=== PATIENT | male | born 2000 | race Caucasian/White ===

== ENCOUNTER 2024-03-20 21:38 | Emergency (ER) | payer OTHER ==
[~2024-03-20] VITALS: Ht 180.3 cm; Wt 108.9 kg
[2024-03-20] MEDS ORDERED: IOHEXOL 300 MG/ML 100 ML VIAL IV ONE (21:45)
[2024-03-20] MEDS ORDERED: SODIUM CHLORIDE 0.9% 1,000 ML IV ONE (21:50)
[2024-03-20] MEDS ORDERED: Thiamine 200 MG/2 ML VIAL IV ONE (21:50)
[2024-03-20] MEDS ORDERED: IOHEXOL 300 MG/ML 100 ML VIAL ONE (22:02)
[2024-03-20 22:17] LABS: HEMATOCRIT 43.6 % (42.0-52.0); MEAN CELL VOLUME 89.9 fl (80.0-94.0); MEAN CORPUSCULAR HGB 31.3 pg (27.0-31.0); MEAN CORPUSCULAR HGB CONC 34.9 g/dl (33.0-37.0); MEAN PLATELET VOLUME 9.6 fl (9.6-12.3); PLATELET COUNT AUTOMATED 314 10*3/uL (130-400); RED BLOOD COUNT 4.85 10*6/uL (4.50-5.90); RED CELL DISTRI WIDTH 12.3 % (0-14.5)
[2024-03-20 22:20] LABS: MANUAL DIFF REFLEX YES
[2024-03-20 22:37] LABS: BUN 14 mg/dl (9-23); CHLORIDE 100 mmol/L (98-107); POTASSIUM 3.7 mmol/L (3.4-5.1)
[2024-03-20 22:48] LABS: PLATELET SUFFICIENCY NORMAL (NORMAL); TOTAL CELLS COUNTED 100 #CELLS
[2024-03-21] MEDS ORDERED: Ondansetron Hydrochloride 4 MG/2 ML VIAL IV ONE (01:05)
[2024-03-21] MEDS ORDERED: METHOCARBAMOL 500 MG TAB PO ONE (01:50)
[2024-03-21] MEDS ORDERED: SODIUM CHLORIDE 0.9% 1,000 ML IV ONE (02:00)
[2024-03-21] MEDS ORDERED: Bacitracin Zinc 14 GM TUBE T ONE (03:05)
[2024-03-21] MEDS ORDERED: Tdap Vaccine 0.5 ML SYR (Adult Vaccine) IM ONE (03:10)
[2024-03-21] MEDS ORDERED: METHOCARBAMOL750 M1 PO (03:21)
[2024-03-21] MEDS ORDERED: NAPROXEN250 MG PO (03:21)
== END 2024-03-21 04:03 | disposition home or self-care (01) ==
LOC: ED 21:38
PROVIDERS: Internal Medicine
DX: S06.0XAA Concussion with loss of consciousness status unknown, initial encounter (principal); S01.01XA Laceration without foreign body of scalp, initial encounter; E87.1 Hypo-osmolality and hyponatremia; D72.829 Elevated white blood cell count, unspecified; V89.2XXA Person injured in unspecified motor-vehicle accident, traffic, initial encounter; Y93.89 Activity, other specified; Y92.410 Unspecified street and highway as the place of occurrence of the external cause; Y99.8 Other external cause status